=== PATIENT | male | born 1970 | race Caucasian/White ===

== ENCOUNTER 2024-12-22 14:43 | Outpatient (REF) | payer MEDICARE, SELFPAY ==
--- OUTSIDE RECORDS SUMMARY | 2024-12-22 15:24 | XMS_ITS | Clinical Summary ---
Author Organization [employer] Address [address] [facility] [address] [place] [address] Care Team Providers Care Follow Up Manager Name Role Phone Unavailable Primary Care Provider Unavailabl e Allergies Active Allergy Reactions Criticality Noted Date Comments Aspirin Anaphylaxis High 12/01/2024 Medications * This document contains information received from the source organization and may not represent a complete record from that organization. EPINEPHrine (Epipen) 0.3 MG/0.3ML injection syringeIndicatio ns:Aspirin-induc ed anaphylactoid reaction Inject into upper leg for severe allergic reaction. May repeat in 5-15 minutes and Call 911 after use. 2 each 2 12/02/19 25 Active haloperidol decanoate (Haldol Decanoate) 50 MG/ML injectionIndicat ions:Other schizophrenia (CMS/HCC) Inject 2 mL (100 mg) into the muscle every 28 (twenty-eight ) days. 2 mL 2 12/10/19 25 Active albuterol 108 (90 Base) MCG/ACT inhalerIndicatio ns:Asthma in adult, moderate persistent, uncomplicated 2 puffs q 4-6 hours prn asthma 18 g 3 12/10/19 25 Active Fluticasone-Salm eterol (Wixela Inhub) 100-50 MCG/ACT aerosol powderIndication s:Asthma in adult, moderate persistent, uncomplicated Inhale 1 Inhalation 2 times daily. 1 each 3 12/10/19 25 2024 Active Suboxone 8-2 MG SL filmIndications: Opioid type dependence, continuous (CMS/HCC) Place 1 Film under the tongue 3 times daily for 7 days. 21 Film 12/22/19 25 2024 Active hydrOXYzine pamoate (Vistaril) 50 MG capsule Take 1 capsule (50 mg) by mouth every 8 (eight) hours if needed for anxiety. 60 capsule 2 12/23/19 25 Active tolnaftate (Lotrimin AF) 1 % powder Apply topically if needed for rash. 90 g 3 12/23/19 25 Active hydrOXYzine pamoate (Vistaril) 25 MG capsuleIndicatio ns:Anxiety 1 or 2 capsules PO q 6-8 hours prn anxiety. May cause drowsiness. 60 capsule 1 12/02/19 25 2024 Discontinued(D ose adjustment) Buprenorphine HCl-Naloxone HCl (Suboxone) 8-2 MG SL filmIndications: Uncomplicated opioid dependence (CMS/HCC) Place 1 Film under the tongue 3 times daily for 7 days. 21 Film 12/03/19 25 2024 Discontinued(R eorder (will not trigger notification to Pharmacy)) Buprenorphine HCl-Naloxone HCl (Suboxone) 8-2 MG SL filmIndications: Uncomplicated opioid dependence (CMS/HCC) Place 1 Film under the tongue 3 times daily for 7 days. 21 Film 12/10/19 25 2024 hydrOXYzine pamoate (Vistaril) 25 MG capsule PRN anxiety or sleep. 30 capsule 2 12/10/19 25 2024 Discontinued(D ose adjustment) Suboxone 8-2 MG SL filmIndications: Opioid type dependence, continuous (CMS/HCC) Place 1 Film under the tongue 3 times daily for 7 days. 21 Film 12/16/19 25 2024 Discontinued(R eorder (will not trigger notification to Pharmacy)) Hospital, Clinic, or Other Facility Administered Medication Ordered Dose Route Frequency Start Date End Date Status haloperidol decanoate (Haldol Decanoate) injection 100 mgIndications:Other schizophrenia (CMS/HCC) 100 mg IM Once 12/10/2024 12/10/2024 E nded Active Problems Problem Noted Date Diagnosed Date Tinea cruris 12/22/2024 Opioid dependence, uncomplicated 12/09/2024 ARJUN (generalized anxiety disorder) 12/02/2024 Severe episode of recurrent major depressive disorder, with psychotic features 12/02/2024 Encounters * This document contains information received from the source organization and may not represent a complete record from that organization. Date Type Department Care Team Description 12/22/2024 2:30 PM EDT Office Visit [address] [address] Bassam De Souza MD Uncomplicated opioid dependence (CMS/HCC) (Primary Dx); Beckie alarcon 12/22/2024 Patient Outreach [facility] [address] [place] [phone] [facility] 12/22/2024 Travel 12/17/2024 Refill [facility] [address] [place] [phone] Amanda Dial RN Opioid type dependence, continuous (CMS/HCC) 12/15/2024 9:15 AM EDT Clinical Support [address] [address] Amanda Dial RN Opioid type dependence, continuous (CMS/HCC) (Primary Dx) 12/15/2024 Patient Outreach [address] [address] [facility] 12/15/2024 Refill [facility] [address] [place] [phone] Amanda Dial RN Opioid type dependence, continuous (CMS/HCC) (Primary Dx) 12/15/2024 Patient Outreach [address] [address] Alen Figueroa [facility] 12/15/2024 Travel 12/14/2024 Patient Outreach [address] [address] Elvis Mcclellan [facility] 12/10/2024 10:00 AM EDT Clinical Support [address] [address] Amanda Dial RN Other schizophrenia (CMS/HCC) 12/10/2024 Patient Outreach [address] [address] Alen Figuero[facility] 12/10/2024 Refill [facility] [address] [place] [phone] Amanda Dial RN Uncomplicated opioid dependence (CMS/HCC) 12/10/2024 Travel 12/09/2024 9:00 AM EDT Office Visit [address] [address] Darryl Jenkins MD Uncomplicated opioid dependence (CMS/HCC) (Primary Dx) 12/09/2024 Telephone [facility] [address] [place] [address] Adenike Goodman MD 12/09/2024 Telephone [facility] [address] [place] [address] Kodi Olguin MD 12/09/2024 Travel 12/09/2024 Refill [facility] [address] [place] [address] Amanda Dial RN Uncomplicated opioid dependence (CMS/HCC) 12/08/2024 10:45 AM EDT Office Visit [facility] [address] [place] [phone] Brendan Garcia MD Uncomplicated opioid dependence (CMS/HCC) (Primary Dx); Cocaine abuse (CMS/HCC); Tobacco use disorder; Other schizophrenia (CMS/HCC); Asthma in adult, moderate persistent, uncomplicated 12/08/2024 Patient Outreach [facility] [address] [place] [address] [facility]a Sands [facility] 12/08/2024 Patient Outreach [facility] [address] [place] [phone] Alen Figueroa [facility] 12/08/2024 Patient Outreach [facility] [address] [place] [phone] Damien Garcia [facility] 12/08/2024 Travel 12/07/2024 Patient Outreach [facility] [address] [place] [address] Braulio Gillis [facility] 12/04/2024 Patient Outreach [facility] [address] [place] [address] Elvis Mcclellan [facility] 12/02/2024 Refill [facility] [address] [place] [address] Amanda Dial RN Uncomplicated opioid dependence (CMS/HCC) (Primary Dx) 12/01/2024 9:30 AM EDT Office Visit [facility] [address] [place] [address] Brendan Garcia MD Uncomplicated opioid dependence (CMS/[facility]) (Primary Dx); Aspirin-induced anaphylactoid reaction; Anxiety; Cocaine abuse ([facility]); Tobacco use disorder 12/01/2024 9:00 AM EDT Office Visit [facility] [address] [place] [phone] Glenna Becerra RN Opioid dependence, continuous ([facility]/HCC) 12/01/2024 Patient Outreach [address] [address] [facility] 12/01/2024 Patient Outreach [address] [address] Damien Garcia [facility] 12/01/2024 Travel 11/27/2024 Patient Outreach [address] [address] Damien Garcia [facility] from Last 3 Months Social History Tobacco Use Types Packs/Day Years Used Date Smoking Tobacco: Every Day Cigarettes Smokeless Tobacco: Never Tobacco Cessation:Ready to Q uit: No; Counseling Given: Yes Alcohol Use Standard Drinks/Week Comments Not Currently 0 (1 standard drink = 0.6 oz pur e alcohol) Depression Answer Date Recorded Patient Health Questionnaire-9 Score 16 12/02/2024 Patient Health Questionnaire-9 Score 16 12/02/2024 Last PHQ-9: Questionnaire Data Not on file 0 12/02/2024 Depression Answer Date Recorded Patient Health Questionnaire-2 Score 4 12/02/2024 Sex and Gender Information Value Date Recorded Sex Assigned at Male 11/27/2024 9:00 AM EDT Legal Sex Male 8:59 AM EDT Gender Identity Male 11/27/2024 9:00 AM EDT Sexual Orientation Straight 11/27/2024 9: 00 AM EDT Last Filed Vital Signs Vital Sign Reading Time Taken Comments Blood Pressure 115/70 12/01/2024 10:05 AM EDT Pulse 56 12/01/2024 10:05 AM EDT Temperature 36.2 C (97.2 F) 12/01/2024 10:05 AM EDT Respiratory Rate 16 12/01/2024 10:05 AM EDT Oxygen Saturation - - Inhaled Oxygen Concentration - - Weight - - Height - - Body Mass Index - - Plan of Treatment Upcoming Encounters Date Type Department Care Team (Late st Contact Info) Description 12/29/2024 2:30 PM EDT Office Visit [facility] [address] [place] [address] Bassam De Souza MD [address] [place] [address] Health Maintenance Due Date Last Done Comments CT Colonography 1971 Colonoscopy 1971 Colorectal Cancer Screening 1971 FIT DNA/Cologuard 1971 FIT 1971 FOBT 1971 HIV Screening 1971 Lipid Panel 1971 SDOH Screening 1971 Sigmoidoscopy 1971 Disability Screening 1971 Alcohol/Substance Use Screening 1983 Hepatitis C Screening 09/29/1989 DTaP/Tdap/Td Vaccines (1 - Tdap) 09/29/1990 Hepatitis B Vaccines (1 of 3 - 19+ 3-dose series) 09/29/1990 Pneumococcal Vaccine: 50+ Years (1 of 2 - PCV) 09/29/1990 Zoster Vaccines (1 of 2) 09/29/2021 COVID-19 Vaccine ( - 2023-2 5 season) 2024 Influenza Vaccine (#1) 2025 Depression Monitoring 06/04/2025 12/02/2024 , 12/02/2024 Tobacco Screening 12/22/2025 12/22/2024 RSV Patients and Patients Aged 60 years or older (1 - 1-dose 75+ series) 09/29/2046 HIB Vaccines Aged Out No longer eligi ble based on patient's age to complete this topic HPV Vaccines Aged Out No longer eligi ble based on patient's age to complete this topic Hepatitis A Vaccines Aged Out No long er eligible based on patient's age to complete this topic IPV Vaccines Aged Out No longer eligi ble based on patient's age to complete this topic Meningococcal B Vaccine Aged Out No l onger eligible based on patient's age to complete this topic Meningococcal Vaccine Aged Out No nimesh coleen eligible based on patient's age to complete this topic RSV under 20 months Aged Out No longe r eligible based on patient's age to complete this topic Rotavirus Vaccines Aged Out No longer eligible based on patient's age to complete this topic Goals Goal Patient Goal Type Associated Problems Recent Progress Patient-Stated? 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 Procedure Name Priority Date/Time Associated Diagnosis Comments POCT JESSICA-14 URINE DRUG SCREEN Routine 12/22/2024 2:13 PM EDT Uncomplicated opioid dependence (CMS/HCC) POCT JESSICA-14 URINE DRUG SCREEN Routine 12/15/2024 9:25 AM EDT Opioid type dependence, continuous (CMS/HCC) POCT JESSICA-14 URINE DRUG SCREEN Routine 12/08/2024 10:17 AM EDT Uncomplicated opioid dependence (CMS/HCC) POCT JESSICA-14 URINE DRUG SCREEN Routine 12/01/2024 11:16 AM EDT Uncomplicated opioid dependence (CMS/HCC) from Last 3 Months Results * (ABNORMAL) POCT JESSICA-14 Urine Drug Screen (12/22/2024 2:13 PM EDT) Only the most recent of4 resultswithin the time period is included. THC Negative Negative Cocaine Screen, Urine Negative Negative Opiate Screen, Urine Negative Negative Methamphetamine Screen Urine Negative Negative Amphetamine Screen, Urine Negative Negative Benzodiazepines Screen, Urine Negative Negative Barbiturate Screen, Urine Negative Negative Methadone Screen, Urine Negative Negative Buprenophine Screen, Urine Positive(A) Negative TCA, Urine Negative Negative MDMA Urine Negative Negative ng/mL Oxycodone Screen, Urine Negative Negative Phencyclidine (PCP), Urine Negative Negative Fentanyl, Urine Negative Negative Urine Urine specimen obtained by clean catch procedure / Unknown 12/22/2024 2:13 PM EDT Bassam De Souza MD POINT OF CARE TEST ENTER/EDIT OR DERABLES Final Result from Last 3 Months Insurance [facility] STANDARD T MEDICARE REPLACEMENT
--- OUTSIDE RECORDS SUMMARY | 2024-12-22 15:24 | XMS_ITS | Clinical Summary ---
Author Organization [facility] Address [address] [place] [address] Phone Care Team Providers Care Manufacturing Support Engineer Name Role Phone Kodi Gavin MD Primary Care Provi william Allergies Active Allergy Reactions Criticality Noted Date Comments Aspirin Anaphylaxis High 12/09/2024 Medications methocarbamoL (ROBAXIN) 500 mg tablet Take 1 tablet (500 mg total) by mouth 2 (two) times a day for 7 days. 14 each 12/09/2024 Active Encounters Date Type Department Care Team Description 12/11/2024 11:00 AM EDT Evaluation [address] [address] Amanda Velasco PT Chronic neck pain (Primary Dx) 12/09/2024 5:19 PM EDT - 12/09/2024 5:49 PM EDT Emergency [facility] Emergency [address] [place] [address] Joe Lopez MD Musculoskeletal neck pain (Primary Dx) Discharge Disposition: Home or Self Care from Last 3 Months Social History Tobacco Use Types Packs/Day Years Used Date Smoking Tobacco: Never Assessed Sex and Gender Information Value Date Recorded Sex Assigned at Not on file Legal Sex Male 2:58 PM EDT Gender Identity Not on file Sexual Orientation Not on file Obstetrics History Last Filed Vital Signs Vital Sign Reading Time Taken Comments Blood Pressure 105/66 12/09/2024 3:14 PM EDT Pulse 69 12/09/2024 3:14 PM EDT Temperature 36.9 C (98.4 F) 12/09/2024 3:14 PM EDT Respiratory Rate 18 12/09/2024 3:14 PM EDT Oxygen Saturation 97% 12/09/2024 3:14 PM EDT Inhaled Oxygen Concentration - - Weight - - Height - - Body Mass Index - - Plan of Treatment Upcoming Encounters Date Type Department Care Team (Late st Contact Info) Description 12/31/2024 2:30 PM EDT Treatment [address] [address] Ar Benavidez, PATIENT BILLER 01/04/2025 2:30 PM EDT Treatment [address] [address] Ar Benavidez, PATIENT BILLER 01/06/2025 2:00 PM EDT Treatment [address] [address] Hai George, PATIENT BILLER 01/11/2025 2:30 PM EDT Treatment [address] [address] Ar Benavidez, PATIENT BILLER 01/13/2025 2:00 PM EDT Treatment [address] [address] Hai George, PATIENT BILLER 01/19/2025 3:00 PM EDT Treatment [address] [address] Ar Benavidez, PATIENT BILLER 01/21/2025 3:00 PM EDT Treatment [address] [address] Amanda Velasco, PT Health Maintenance Due Date Last Done Comments DTaP,Tdap,and Td Vaccines (1 - Tdap) 09/29/1990 Hepatitis A Vaccines (1 of 2 - Risk 2-dose series) 09/29/1990 Hepatitis B Vaccines (1 of 3 - 19+ 3-dose series) 09/29/1990 Pneumococcal Vaccine: 50+ Ye ars (1 of 2 - PCV) 09/29/1990 Zoster Vaccines (1 of 2) 09/29/2021 COVID-19 Vaccine ( - 2023-2 5 season) 2024 Depression Screening 05/20/2024 Cholesterol Screening (Lipid Panel) 12/10/2024 Colorectal Cancer Screening: Colonoscopy 12/10/2024 HIV Screening 12/10/2024 Hepatitis C Screening 12/10/2024 Medicare Annual Wellness Visit 12/10/2024 Social Influencers of Health Screening 12/10/2024 Influenza Vaccine (#1) 2025 HIB Vaccines Aged Out No longer eligi ble based on patient's age to complete this topic HPV Vaccines Aged Out No longer eligi ble based on patient's age to complete this topic IPV Vaccines Aged Out No longer eligi ble based on patient's age to complete this topic MMR Vaccines Aged Out No longer eligi ble based on patient's age to complete this topic Meningococcal ACWY Vaccine Aged Out N o longer eligible based on patient's age to complete this topic Meningococcal B Vaccine Aged Out No l onger eligible based on patient's age to complete this topic RSV Immunization Patients Un william 20 months Aged Out No longer eligible b ased on patient's age to complete this topic Varicella Vaccines Aged Out No longer eligible based on patient's age to complete this topic Insurance [employer] MEDICARE [employer]VANTAGE Care Teams Manufacturing Support Engineer Relationship Specialty Start Date End Date Kodi Gavin MD [address] [place] [id number] PCP - General Internal Medicine 12/09/24
[2024-12-22 16:29] LABS: Alanine Aminotransferase 15 U/L (0-40); Albumin Level 4.5 g/dL (3.5-5.0); Alkaline Phosphatase 83 U/L (39-117); Anion Gap 12 (12-20); Aspartate Amino Transferase 25 U/L (5-37); Blood Urea Nitrogen 13 mg/dL (9-16); Calcium 9.2 mg/dL (8.4-10.2); Carbon Dioxide 28 mmol/L (22-29); Chloride 103 mmol/L (96-108); Estimated Glomerular Filt Rate > 60; Potassium 3.9 mmol/L (3.3-5.1); Sodium 139 mmol/L (135-145); Total Protein 7.3 g/dL (6.5-8.0)
[2024-12-22 16:31] LABS: Hemoglobin A1C 144.0005 umol/L; Total Hemoglobin (HGBA1C) 3822.3047 umol/L
[2024-12-23 08:10] LABS: HBS Num1 180.27 mIU/mL (0-7.99); HBc Num1 10.15 S/CO (0.00-0.79); HBsAGNum1 0.47 S/CO (0.00-0.99); HIV Num 1 0.05 S/CO (0.00-0.99); Hepatitis B Surface Antigen Negative (Negative); ~HepC Num1 12.22 S/CO (0.00-0.79); ~Hepatitis B Surface Antibody REACTIVE (Nonreactive); ~Hepatitis C Antibody Reactive (Nonreactive)
[2024-12-23 10:18] LABS: HBc Num2 9.99 S/CO; HBc Num3 10.18 S/CO
[2024-12-25 07:03] LABS: TS Negative Control Passed; TS Panel A 1; TS Panel B 1; TS Positive Control Passed; TSpotTB Negative (Negative)
[2024-12-25 08:05] LABS: ~Hepatitis A Antibody IgG 6.36 S/CO (0.00-0.99)
[2024-12-25 16:19] LABS: HCV Log PCR <1.18 NOT DETECTED Log IU/mL (NOT DETECTED); HepC Viral Load <15 NOT DETECTED IU/mL (NOT DETECTED)
== END 2024-12-22 14:44 | disposition home or self-care (01) ==
LOC: HO.HHCL 14:43
PROVIDERS: Visit Provider Emergency Medicine
DX: Z11.59 Encounter for screening for other viral diseases (principal); Z11.4 Encounter for screening for human immunodeficiency virus [HIV]; Z11.1 Encounter for screening for respiratory tuberculosis; Z11.3 Encounter for screening for infections with a predominantly sexual mode of transmission; Z13.1 Encounter for screening for diabetes mellitus; F11.20 Opioid dependence, uncomplicated
CPT/HCPCS: 36415; 80048; 80076; 83036; 86481; 86592; 86704; 86706; 86708; 86803; 87340; 87389; 87522